=== PATIENT | male | born 2005 | race Caucasian/White ===

== ENCOUNTER 2024-08-27 13:20 | Outpatient (CLI) | payer BC, SELFPAY | END 2024-08-27 13:21 | disposition home or self-care (01) | PROVIDERS: PCP Internal Medicine; Visit Provider Internal Medicine | DX: Z00.00 Encounter for general adult medical examination without abnormal findings (principal); Z13.228 Encounter for screening for other metabolic disorders; Z13.6 Encounter for screening for cardiovascular disorders | CPT/HCPCS: 80053; 80061 ==